=== PATIENT | female | born 1955 | race Caucasian/White ===

== ENCOUNTER 2018-05-02 11:13 | Outpatient (CLI) | END 2018-05-02 11:14 | disposition home or self-care (01) | LOC: RAD 11:13 | PROVIDERS: ATTEND Internal Medicine | DX: Z12.31 Encounter for screening mammogram for malignant neoplasm of breast (principal) | CPT/HCPCS: 77067 ==

== ENCOUNTER 2018-05-26 08:18 | Outpatient (CLI) ==
[2018-05-26] MEDS ORDERED: PROLIA SUBCUT STA (08:36)
[2018-05-26 08:44] VITALS: BP 117/77; TEMP 97.3
== END 2018-05-26 08:19 | disposition home or self-care (01) ==
LOC: OPMED 08:18
PROVIDERS: ATTEND Internal Medicine
DX: M81.0 Age-related osteoporosis without current pathological fracture (principal)
CPT/HCPCS: 96372

== ENCOUNTER 2018-12-04 10:41 | Outpatient (CLI) | payer OTHER ==
[2018-12-04 10:57] VITALS: BP 130/78; TEMP 98
[2018-12-04] MEDS ORDERED: PROLIA SUBCUT STA (10:57)
== END 2018-12-04 10:42 | disposition home or self-care (01) ==
LOC: OPMED 10:41
PROVIDERS: ATTEND Internal Medicine
DX: M81.0 Age-related osteoporosis without current pathological fracture (principal)
CPT/HCPCS: 96372